=== PATIENT | female | born 1990 | race Caucasian/White ===

== ENCOUNTER 2020-03-16 08:19 | Emergency (ER) | payer MEDICAID ==
[~2020-03-16] VITALS: Ht 167.6 cm; Wt 84.5 kg
[2020-03-16] MEDS ORDERED: CLONIDINE (08:27)
[2020-03-16] MEDS ORDERED: TETANUS, DIPHTHERIA, PERTUSSIS VAC/PF 0.5ML (>7YR OLD) IM ONE (09:15)
[2020-03-16 10:15] VITALS: BP 129/75
[2020-03-16 12:57] LABS: *COCAINE SCREEN URINE NEGATIVE (NEGATIVE)
[2020-03-16 12:58] LABS: METHADONE URINE SCREEN NEGATIVE (NEGATIVE); PHENCYCLIDINE URINE SCREEN NEGATIVE (NEGATIVE)
[2020-03-16 13:02] LABS: *AMPHETAMINES SCREEN URINE PRESUMTIVE POSITIVE (NEGATIVE); *BARBITURATES SCREEN URINE NEGATIVE (NEGATIVE); *BENZODIAZEPINES SCREEN URINE PRESUMTIVE POSITIVE (NEGATIVE); CANNABINOID URINE SCREEN PRESUMTIVE POSITIVE (NEGATIVE); OPIATES URINE SCREEN PRESUMTIVE POSITIVE (NEGATIVE)
== END 2020-03-16 10:30 | disposition left against medical advice (07) ==
LOC: ER 08:19
DX: S00.511A Abrasion of lip, initial encounter (principal); F15.90 Other stimulant use, unspecified, uncomplicated; F11.10 Opioid abuse, uncomplicated; I10 Essential (primary) hypertension; Z88.8 Allergy status to other drugs, medicaments and biological substances; V49.9XXA Car occupant (driver) (passenger) injured in unspecified traffic accident, initial encounter; Y93.89 Activity, other specified; Y92.89 Other specified places as the place of occurrence of the external cause; Y99.8 Other external cause status
CPT/HCPCS: 80305; 99283